=== PATIENT | male | born 1980 | race Caucasian/White ===

== ENCOUNTER 2017-06-11 22:13 | Emergency (ER) | payer OTHER ==
[~2017-06-11] VITALS: Ht 172.7 cm; Wt 83.9 kg
[~2017-06-11 22:13] MED LIST: BUPR2TAB3 SL; PROP40TA7 PO; VENL37.55 PO
--- NOTE | 2017-06-12 01:00 | NUR ---
36 Y/O MALE PLACED IN BED 10. PT C/O ABOUT DIARRHEA. MD PRESCRIBED MEDICATION. PRESENTED ACI AND DISCHARGED HOME
[2017-06-12 03:32] VITALS: BP 135/82
== END 2017-06-12 03:42 | disposition home or self-care (01) ==
LOC: ER 22:18
DX: K52.9 Noninfective gastroenteritis and colitis, unspecified (principal); Z79.899 Other long term (current) drug therapy
CPT/HCPCS: A4606; Z7502; Z7610

== ENCOUNTER 2017-06-20 03:14 | Emergency (ER) | payer OTHER ==
[~2017-06-20] VITALS: Ht 167.6 cm; Wt 74.8 kg
[2017-06-20] MEDS ORDERED: ONDANSETRON HCL/PF 4 MG/2 ML VIAL IVP ONE (04:00)
[2017-06-20] MEDS ORDERED: IV NS 0.9% 1,000 ML BAG IV ONE (04:00)
[2017-06-20] MEDS ORDERED: ONDANSETRON HCL/PF 4 MG/2 ML VIAL ONE (04:29)
[2017-06-20] MEDS ORDERED: LORAZEPAM 1 MG TABLET PO ONE (04:30)
[2017-06-20 04:33] LABS: APPEARANCE,URINE CLEAR (CLEAR); BILIRUBIN,URINE 1+ (NEGATIVE); BLOOD, URINE NEGATIVE Ery/uL (NEGATIVE); COLOR,URINE DARK YELLO (YELLOW); KETONES,URINE NEGATIVE (NEGATIVE); LEUKOCYTE ESTERASE ,URINE NEGATIVE (NEGATIVE); NITRITE, URINE NEGATIVE (NEGATIVE); PROTEIN,URINE TRACE mg/dl (NEGATIVE); UGLUCOSE NEGATIVE (NEGATIVE); UROBILINOGEN,URINE 0.2 EU/dL (0.2)
[2017-06-20 04:36] LABS: BASOPHILS # (AUTO) 0.1 /CMM (0.0-0.2); BASOPHILS % (AUTO) 1.1 % (0.0-2.0); EOSINOPHILS # (AUTO) 0.2 /CMM (0.0-0.7); HEMATOCRIT 42 % (39-51); LYMPHOCYTES # (AUTO) 2.1 /CMM (0.8-4.8); LYMPHOCYTES % (AUTO) 22.8 % (20.0-44.0); MEAN CORPUSCULAR HEMOGLOBIN 29 PG (26.0-33.0); MEAN CORPUSCULAR HGB CONC 34 g/dl (31.0-36.0); MEAN CORPUSCULAR VOLUME 85 fL (80-96); MONOCYTES # (AUTO) 0.5 /CMM (0.1-1.30); MONOCYTES % (AUTO) 5.6 % (2.0-12.0); NEUTROPHILS # (AUTO) 6.4 /CMM (1.8-8.9); NEUTROPHILS % (AUTO) 68.5 % (43.0-81.0); PLATELET COUNT (AUTO) 263 /CMM (150-450); RDW COEFFICIENT OF VARIATION 13.5 (11.5-15.0); RED BLOOD CELL COUNT(AUTO) 4.91 MIL/uL (4.5-6.0); WHITE BLOOD COUNT (AUTO) 9.3 K/uL (4.3-11.0)
[2017-06-20 04:40] LABS: BACTERIA,URINE None seen /HPF (None Seen); MUCUS,URINE Few /LPF (None Seen); RBC,URINE NONE SEEN /HPF (0-2); SQUAMOUS EPITHELIAL CELL,UR Few /HPF (None Seen); WBC,URINE 0-2 /HPF (0-3)
[2017-06-20] MEDS ORDERED: LORAZEPAM 1 MG TABLET ONE (04:43)
--- NOTE | 2017-06-20 04:45 | NUR ---
PT RECIEVED FROM HOME C/O N/V X2 WEEKS "i HAD VOMIT 20 TIMES TODAY". NO PAIN OR SOB NOTED AT THIS TIME. VSS A/0X4 NAD. WILL CONTINUE TO MONITOR FOR ANY CHANGES
--- NOTE | 2017-06-20 04:46 | NUR ---
SIGIFREDO ODONNELL AT BEDSIDE
[2017-06-20 04:54] LABS: CALCIUM, SERUM 9.4 mg/dL (8.5-10.1); CREATININE 0.9 mg/dL (0.6-1.3); POTASSIUM 3.8 mmol/L (3.5-5.1)
[2017-06-20 04:58] LABS: ALBUMIN 4.3 g/dL (3.4-5.0); BILIRUBIN,TOTAL 0.3 mg/dL (0.2-1.0); TOTAL PROTEIN, SERUM 8.3 g/dL (6.4-8.2)
[2017-06-20 05:28] VITALS: BP 130/73
== END 2017-06-20 05:29 | disposition home or self-care (01) ==
LOC: ER 03:14
DX: E86.0 Dehydration (principal); R11.2 Nausea with vomiting, unspecified; F41.9 Anxiety disorder, unspecified; Z88.5 Allergy status to narcotic agent
CPT/HCPCS: 36415; 80048-TC; 80076-TC; 81000-TC; 83690-TC; 85025-TC; A4606; J2405; J7030; Z7610

== ENCOUNTER 2017-09-08 11:40 | Emergency (ER) | payer OTHER ==
[~2017-09-08] VITALS: Ht 170.2 cm; Wt 78.9 kg
--- NOTE | 2017-09-08 11:48 | NUR ---
PT BIB RA C/O ANXIETYY AND STATES "I FEEL LIKE SHIT" S/P A 7 DAY METH ORO. PT REPORTS HE WAS GOING TO GO TO DETOX TODAY BUT WAS TOO ANXIOUS. SHAKY AND HYPERVENTILATING BUT RESPIRATIONS UNLABORED. SKIN WARM DRY. VSS. IN ER BED 15.
[2017-09-08] MEDS ORDERED: LORAZEPAM INJ 2 MG/ML VIAL IV ONE (12:00)
[2017-09-08] MEDS ORDERED: IV NS 0.9% 1,000 ML BAG IV ONE (12:00)
[2017-09-08] MEDS ORDERED: LORAZEPAM INJ 2 MG/ML VIAL ONE (12:17)
--- NOTE | 2017-09-08 13:30 | NUR ---
AT BEDSIDE. RESTING QUIETLY, NAD NOTED, ASLEEP BUT EASILY AROUSED BY TOUCH. MILTON, FACILITIES LOCATOR, WORKING ON DETOX PLACEMENT PER PT AND REQUEST. VSS.
--- NOTE | 2017-09-08 15:49 | NUR ---
MONIQUE received a call from Dr. Hodges in ED stating pt. wants to go to Detox. MONIQUE met with pt. and his and mother bedside. Pt. was asleep. 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 Pt. wants to go to treatment. Pt's drug of choice is methamphetamines and heroin. MONIQUE contacted [facility] and was informed by Lillian that they have a 10 day wait list and to call back then. MONIQUE also contacted Gini at [facility] x [phone] for a male bed at their detox facility. Gini informed SW she will call her back. SW is awaiting a call back. MONIQUE met with pt's and informed her that she is awaiting a call back from [facility] that [facility] stated that pt. needs to call and they have a 10 day waiting period as there are no beds available at this time. MONIQUE gave pt's Josefina list of referrals to drug treatment programs. MONIQUE updated pt's RN Jada regarding referrals.
--- NOTE | 2017-09-08 15:49 | NUR ---
CALL COLLEEN WHEN PATIENT IS READY TO BE DC'ED [phone]
--- NOTE | 2017-09-08 17:45 | NUR ---
PT FEELS SOMEWHAT BETTER BUT IS VERY DROWSY AT THIS TIME, NOT READY TO BE DISCHARGED. VSS.
--- NOTE | 2017-09-08 18:00 | NUR ---
CALLED [facility] SH[employer] MARKER, ETA 1 HR 30MINS
--- NOTE | 2017-09-08 18:50 | NUR ---
RESTING COMFORTABLY, ASLEEP, EASILY AROUSABLE. AWAITING PINKY FOR EVAL.
--- NOTE | 2017-09-08 19:02 | NUR ---
PINKY AT BEDSIDE
--- NOTE | 2017-09-08 19:09 | NUR ---
REPORT REC'D FROM [facility].
--- NOTE | 2017-09-08 20:09 | NUR ---
PT WAS UNABLE TO AMBULATE. PT IS STILL SEDATED. VSS.
--- NOTE | 2017-09-08 21:12 | NUR ---
PT APPEARS TO BE SLEEPING SOUNDLY WITH NO S/S OF PAIN OR DISTRESS. PT IS ON THE MONITOR AND CONTINUOUS PULSE OX. RESP EVEN AND UNLABORED. VSS. NAD NOTED.
--- NOTE | 2017-09-08 23:13 | NUR ---
PT APPEARS TO BE SLEEPING SOUNDLY WITH NO S/S OF PAIN OR DISTRESS. VSS. RESP EVEN AND UNLABORED.
--- NOTE | 2017-09-09 00:44 | NUR ---
PT IS SLEEPING SOUNDLY. NO S/S OF PAIN OR DISTRESS. RESP EVEN AND UNLABORED. VSS. PT IS ON THE MONITOR AND CONTINUOUS PULSE OX.
--- NOTE | 2017-09-09 01:35 | NUR ---
PT WAS EASILY AROUSED. PT WAS ASSISTED TO A STANDING POSITION. PT WAS ABLE TO AMBULATE WITHOUT ASSISTANCE. PT REC'D JELLO, PUDDING, APPLESAUCE, JUICE, AND CRACKERS. PT IS CALLING HIS TO PICK HIM UP AND WILL WAIT IN THE LOBBY FOR P/U. VSS. RESP EVEN AND UNLABORED.
[2017-09-09 01:37] VITALS: BP 137/81
== END 2017-09-09 01:37 | disposition home or self-care (01) ==
LOC: ER 11:43
DX: F41.0 Panic disorder [episodic paroxysmal anxiety] (principal); F15.10 Other stimulant abuse, uncomplicated; F19.10 Other psychoactive substance abuse, uncomplicated; F11.10 Opioid abuse, uncomplicated; F10.10 Alcohol abuse, uncomplicated; Z88.5 Allergy status to narcotic agent; Z98.890 Other specified postprocedural states
CPT/HCPCS: 93005; 96361; 96374; 99284; A4606; J2060; J7030; Z7610

== ENCOUNTER 2017-11-19 22:37 | Inpatient (IN) | payer OTHER ==
[~2017-11-19] VITALS: Ht 172.7 cm; Wt 81.6 kg
--- NOTE | 2017-11-19 23:00 | NUR ---
PT AMBULATORY TO ER BED 12. BIB FAMILY FROM HOME C/O EPIGASTRIC PAIN WITH NAUSEA X 5 DAYS. PT PLACED IN GOWN AND ON COIN DEALER. PT VSS/NAD NOTED/RESP EVEN UNLABORED/SKIN WARM AND DRY/AFEBRILE/AOX4. AWAITING MD DORANTES.
[2017-11-19] MEDS ORDERED: LORAZEPAM 1 MG TABLET ONE (23:37)
--- NOTE | 2017-11-19 23:40 | NUR ---
MD CARPENTER BEDSIDE FOR EVAL.
[2017-11-19 23:59] LABS: BASOPHILS # (AUTO) 0.1 /CMM (0.0-0.2); BASOPHILS % (AUTO) 0.5 % (0.0-2.0); EOSINOPHILS % (AUTO) 0.7 % (0.0-6.0); HEMATOCRIT 39 % (39-51); HEMOGLOBIN 12.8 g/dL (13.5-17.5); LYMPHOCYTES # (AUTO) 1.9 /CMM (0.8-4.8); LYMPHOCYTES % (AUTO) 19.3 % (20.0-44.0); MEAN CORPUSCULAR HGB CONC 33 g/dl (31.0-36.0); MEAN CORPUSCULAR VOLUME 88 fL (80-96); MONOCYTES # (AUTO) 0.6 /CMM (0.1-1.30); MONOCYTES % (AUTO) 5.9 % (2.0-12.0); NEUTROPHILS # (AUTO) 7.4 /CMM (1.8-8.9); NEUTROPHILS % (AUTO) 73.6 % (43.0-81.0); PLATELET COUNT (AUTO) 265 /CMM (150-450); RDW COEFFICIENT OF VARIATION 14.2 (11.5-15.0); RED BLOOD CELL COUNT(AUTO) 4.42 MIL/uL (4.5-6.0); WHITE BLOOD COUNT (AUTO) 10.1 K/uL (4.3-11.0)
[2017-11-19 23:59] LABS: OCCULT BLOOD STOOL POSITIVE (NEGATIVE)
[2017-11-20] MEDS ORDERED: LORAZEPAM 1 MG TABLET PO ONE
[2017-11-20 00:16] LABS: INR 1.02 (0.87-1.13)
[2017-11-20 00:30] LABS: ALBUMIN 4.2 g/dL (3.4-5.0); BILIRUBIN,DIRECT 0.1 mg/dL (0.0-0.2); BILIRUBIN,TOTAL 0.5 mg/dL (0.2-1.0); CALCIUM, SERUM 9.1 mg/dL (8.5-10.1); CREATININE 0.8 mg/dL (0.6-1.3); POTASSIUM 3.4 mmol/L (3.5-5.1); TOTAL PROTEIN, SERUM 7.9 g/dL (6.4-8.2)
--- NOTE | 2017-11-20 01:32 | NUR ---
PT AMBULATORY WITH A STEADY GAIT OUTSIDE TO SMOKE. OK'D BY .
--- NOTE | 2017-11-20 01:42 | NUR ---
CALL FROM [employer] ARCHITECT- [phone]. PT ACCEPTED TO [facility] BY DR ZIMMER #[phone]. BED MS 126-A. # FOR REPORT [phone]- [facility] SUP. AUTH FOR TRANSPORT [id number]
[2017-11-20] MEDS ORDERED: PANTOPRAZOLE 40 MG VIAL ONE (02:43)
[2017-11-20 03:00] VITALS: BP 138/95
[2017-11-20] MEDS ORDERED: PANTOPRAZOLE 80 MG in IV NS 0.9% 500 ML IV ONE (03:00)
[2017-11-20] MEDS ORDERED: ONDANSETRON HCL/PF 4 MG/2 ML VIAL IVP PRN (03:00)
[2017-11-20] MEDS ORDERED: LORAZEPAM INJ 2 MG/ML VIAL IV PRN (03:00)
[2017-11-20] MEDS ORDERED: ACETAMINOPHEN 650 MG/SUPP.RECT RC PRN (03:00)
[2017-11-20] MEDS ORDERED: IV NS 0.9% 1,000 ML IV PRN (03:00)
[2017-11-20] MEDS ORDERED: PANTOPRAZOLE 80 MG in IV NS 0.9% 100 ML IV ONE (03:00)
[2017-11-20] MEDS ORDERED: TEMAZEPAM 15 MG CAPSULE PO PRN (03:00)
--- NOTE | 2017-11-20 03:25 | NUR ---
PT TO RM 322.1 VIA WC WITH EMT. CAMERONS.
--- NOTE | 2017-11-20 03:30 | NUR ---
MS/RN RECEIVE PATIENT FROM E.R. VIA WHEELCHAIR. PATIENT IS AWAKE, ALERT, ORIENTED, NO C/O PAIN AT THIS TIME, NO DISTRESS NOTED. ADMISSION PER PROTOCOL WAS DONE, BUT DRUM BUILDER UNABLE TO DO VITAL SIGNS AND BELONGINGS RECONCILIATION THE PATIENT WOULD NOT STAY IN BED AND APPEAR ANXIOUS. PLAN OF CARE ABOUT THE DIAGNOSIS WAS DISCUSSED WITH THE PATIENT, AGREEABLE BEING NPO PER ORDER. WILL MONITOR.
--- NOTE | 2017-11-20 05:01 | NUR ---
MS/RN PATIENT CONTINUES TO BECOME ANXIOUS AND AGITATED AND REFUSING IV FLUIDS. PATIENT WANTS TO GO SMOKE. EXPLAINED ABOUT HOSPITAL'S POLICY REGARDING SMOKING, VERBALIZED UNDERSTANDING BUT INSISTED TO GO SMOKE. CHARGE NURSE MADE AWARE, CHARGE NURSE SPOKE TO THE PATIENT. PATIENT INSISTED TO GO SMOKE. PATIENT WAS ALLOWED TO GO DOWN TO SMOKE WITH THE AIR BATTLE MANAGER TO AVOID INCREASED AGITATION. PATIENT CAME BACK IN APPROXIMATELY 20 MINUTES. WILL CONTINUE TO MONITOR.
--- NOTE | 2017-11-20 05:30 | NUR ---
MS/RN PATIENT IS IN BED AT THIS TIME, LESS ANXIOUS, AGREED TO HAVE VITAL SIGNS TAKEN, BELONGINGS WERE RECONCILED BY THE HOG GRADER. PATIENT REQUESTED FOR ATIVAN. ATIVAN 1 MG IV WAS GIVEN ORDERED. WILL MONITOR.
--- NOTE | 2017-11-20 05:50 | NUR ---
MS/RN IV OCCLUDED, REMOVED, INSERTED NEW IV AT LEFT F/A G 22. WILL MONITOR.
--- NOTE | 2017-11-20 06:00 | NUR ---
MS/RN PATIENT IS AWAKE, ALERT, COMFORTABLE, NO DISTRESS NOTED, ALL NEEDS ATTENDED AT THIS TIME. WILL CONTINUE TO MONITOR.
--- NOTE | 2017-11-20 07:18 | NUR ---
MS/RN PATIENT C/O PAIN, OBTAINED ORDER FOR DILAUDIDI 0.5 MG IV, PATIENT IS ALLERGIC TO MORPHINE. VERIFIED WITH PATIENT ABOUT DILAUDID, PER PATIENT HE HAD DILAUDID IN THE PAST WITHOUT REACTION. PER PATIENT HE CAN HAVE DILAUDID.
--- NOTE | 2017-11-20 07:23 | NUR ---
MS RN OPENING NOTE PATIENT IS A/O X4, VERY ANXIOUS, EASILY AGITATED. PATIENT FOUND PACING IN THE ROOM WEARING HIS OWN CLOTHES. PATIENT STATED " I WANT TO GO HOME, I CANT EAT OR DRINNK, AND I HAVE TO SUFFER". CONCEPT OF NPO ORDER DISCUSSED WITH THE PATIENT. RN EDUCATED THE PATIENT ON GI BLEED, AWAITING GI CONSULT AND RISKS ASSOCIATED WITH LEAVING THE HOSPITAL AGAINST MEDICAL ADVICE. PATIENT VERBALIZED UNDERSTANDING OF THE TEACHINGS AND STATED "OK, I WILL STAY FOR NOW THEN". PATIENT REPORTED PAIN RATING 8/10 IN ABDOMEN AND HEAD. PATIENT IS REFUSING TO LAY IN THE BED AND STATES "WALKING HELPS ME RELAX". PATIENT IS AMBULATORY AND PRESENTS WITH STEADY GAIT. CALL LIGHT WITHIN REACH. EDUCATED TO USE THE CALL LIGHT. PATIENT VERBALIZED UNDERSTANDING OF ALL THE TEACHING. WILL ADMINISTER PAIN MEDICATION ONCE VERIFIED BY THE PHARMACY.
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
[2017-11-20] MEDS ORDERED: HYDROMORPHONE INJ 0.5 MG/0.5 ML SYRINGE IV PRN (07:30)
[2017-11-20] MEDS ORDERED: HYDROMORPHONE 1 MG/1 ML DISP.SYRIN IV PRN (07:30)
[2017-11-20] MEDS ORDERED: HYDROMORPHONE INJ 2 MG/ML DISP.SYRIN IV PRN (07:32)
--- NOTE | 2017-11-20 07:43 | NUR ---
ADMINISTERED DILAUDID ORDERED. WILL RE-ASSESS PAIN.
--- NOTE | 2017-11-20 07:47 | NUR ---
PATIENT APPROACHED THE NURSE IN THE HALLWAY. GAVE A FOAM CUP WITH A DRAWING OF A FACE ON IT AND SAID "THIS IS CATY, HE IS GOING TO PROTECT YOU AND LOOK AFTER YOU". NURSE THANKED THE PATIENT.
[2017-11-20 08:00] VITALS: BP 128/86
--- NOTE | 2017-11-20 08:21 | NUR ---
PATIENT STATED HE TALKED TO HIS AND SHE NEEDS HIM TO GO HOME AND GIVE THE HOUSE ROYAL TO HER. STATED HE WILL AMA, AND RETURN AND READMIT HIMSELF. RISKS ASSOCIATED WITH LEAVING AMA DISCUSSED WITH THE PATIENT. PATIENT STATED "I HAVE TO GO". CHARGE NURSE DURAN NOTIFIED. PATIENT'S BELONGINGS WERE RETURNED. PATIENT SIGNED THE AMA FORM, BUT LEFT THE BELONGINGS LIST UNSIGNED. RN SIGNED IT WITH CHARGE NURSE GARZON. PATIENT DID NOT WANT TO TAKE ANY MEDICAL RECORDS.
--- NOTE | 2017-11-20 08:23 | NUR ---
RN WENT TO THE PATIENT'S ROOM TO REMOVE THE IV. RN SAW THE PATIENT HOLDING A CUP UNDER HIS ARM, AND BLOOD DRIPPING FROM THE REMOVED CATHETER SITE TO THE CUP. IV CATHETER ON THE FLOOR BY THE PATIENT'S FEET. PATIENT STATED "ITS OK, I AM A TUFF MATTIE, I CAN REMOVE MY OWN IV. I AM A SOLDIER". RNS GUNNER AND TEMO CLEANSED PATIENT'S ARM WITH ALCOHOL SWAB AND COVERED WITH A GAUZE. PRESSURE APPLIED TO THE BLEEDING ARM. OCLUSIVE DRESSING APPLIED. BLEEDING STOPPED. FLOORS AND CLEANSED WITH CLOROX WIPES. BIOHAZARD MATERIALS DISPOSED ACCORDING TO THE POLICY.
--- NOTE | 2017-11-20 08:38 | NUR ---
PATIENT LEFT THE HOSPITAL PREMISES.
[2017-11-20] MEDS ORDERED: PANTOPRAZOLE 40 MG VIAL IV SCH (09:00)
--- NOTE | 2017-11-20 09:11 | NUR ---
PATIENT'S MOTHER ON THE PHONE. STATED SHE WANTED TO SEE HOW IS HE DOING. PATIENT'S MOTHER STATED " I KNOW HE LEFT, BUT I WANTED TO ASK IF HE WANTS TO COME BACK, CAME HE COME AND BE RE-ADMITTED AGAIN? RN ANSWERED THE PATIENT SHOULD GO TO THE NEAREST EMERGENCY ROOM AND THAT [facility] ER IS OPEN TO THE COMMUNITY.
--- NOTE | 2017-11-20 09:17 | NUR ---
SECURITY CALLED FROM [facility]IRS STATING PATIENT IS DOWNSTAIRS AND WANTS TO COME UP. RN TOLD THE PATIENT THAT HE MUST GO THROUGH THE EMERGENCY DEPARTMENT. PATIENT VERBALIZED UNDERSTANDING.
== END 2017-11-20 08:30 | disposition left against medical advice (07) | DRG 241 ==
LOC: ER 22:43 → MED 11-20 02:45
PROVIDERS: ADMIT Nurse Practitioner Acute Care; ATTEND Nurse Practitioner Acute Care
DX: K27.9 Peptic ulcer, site unspecified, unspecified as acute or chronic, without hemorrhage or perforation (principal); F41.9 Anxiety disorder, unspecified; Z91.14 Patient's other noncompliance with medication regimen; Z88.5 Allergy status to narcotic agent; Z98.890 Other specified postprocedural states; Z76.5 Malingerer [conscious simulation]
CPT/HCPCS: 36415; 80048-TC; 80076-TC; 82272-TC; 83690-TC; 85025-TC; 85730-TC; 87081-TC; A4606; A6402; C9113; J1170; J2060; J7030; Z7610

== ENCOUNTER 2017-11-20 09:47 | Emergency (ER) | payer OTHER ==
[~2017-11-20] VITALS: Ht 172.7 cm; Wt 81.6 kg
--- NOTE | 2017-11-20 09:50 | NUR ---
RECIEVED PATIENT TO ED BED 16. A/OX4, PT IS C/O BLOOD IN THE STOOL, AND ABD PAIN. PT WAS ADMITTED LAST NIGHT BUT AMA'D THIS AM. PT WANTS TO BE ADMITTED AGAIN. APPEARS ANXIOUS. NAD ALL NEEDS ARE ATTENDED, PENDING ER MD DORANTES
--- NOTE | 2017-11-20 11:00 | NUR ---
BLOOD IN STOOL. AMA'ed FROM HOSPITAL TODAY IN AM. NAD NOTED, VSS, RESP EVEN AND UNLABORED, PT WAS PUT ON MONITOR, PT WAS SEEN BY .
--- NOTE | 2017-11-20 12:30 | NUR ---
Patient eloped from facility. ER MD notified.
[2017-11-20 13:16] VITALS: BP 128/75
== END 2017-11-20 13:17 | disposition left against medical advice (07) ==
LOC: ER 09:48
DX: K92.2 Gastrointestinal hemorrhage, unspecified (principal); F41.9 Anxiety disorder, unspecified; Z88.6 Allergy status to analgesic agent; Z98.890 Other specified postprocedural states
CPT/HCPCS: A4606; Z7502; Z7610

== ENCOUNTER 2018-01-02 05:53 | Emergency (ER) | payer OTHER ==
[~2018-01-02] VITALS: Ht 172.7 cm; Wt 82.6 kg
--- NOTE | 2018-01-02 05:53 | NUR ---
PT BB SELF BROUGHT IN BY WHEELCHAIR BECAUSE "I CANT DO IT MAN" WHEN TRYING TO WALK. PT IS C/O WEAKNESS BUT IS NOTED VERY ANXIOUS WITH TACHYCARDIA BUT OTHERWISE VSS. NO ACUTE DISTRESS AT THIS TIME. PT IS SLURRING WORDS BUT ALERT AND ORIENTED X4. WILL CONTINUE TO MONITOR FOR ANY CHANGES DURING THE SHIFT.
--- NOTE | 2018-01-02 05:54 | NUR ---
ER MD MCKAY AT BEDSIDE
[2018-01-02] MEDS ORDERED: LORAZEPAM 1 MG TABLET ONE (06:13)
[2018-01-02] MEDS ORDERED: LORAZEPAM 1 MG TABLET PO ONE (06:30)
--- NOTE | 2018-01-02 06:36 | NUR ---
PATIENT HAS BEEN D/C'D. PATIENT WAS ASKING MD MCKAY "KNOCK ME OUT PLEASE" IN WHICH MD MCKAY STATED HE WOULD NOT DO THAT. PATIENT HAS WALKED OUT WITH A STEADY GAIT AND "ILL GET AN UBER HOME"
[2018-01-02 06:38] VITALS: BP 131/77
== END 2018-01-02 06:38 | disposition home or self-care (01) ==
LOC: ER 05:54
DX: F30.9 Manic episode, unspecified (principal); F43.10 Post-traumatic stress disorder, unspecified; Z98.890 Other specified postprocedural states; Z88.6 Allergy status to analgesic agent; Z87.11 Personal history of peptic ulcer disease
CPT/HCPCS: 99284; A4606; Z7610

== ENCOUNTER 2018-06-17 17:59 | Emergency (ER) | payer OTHER ==
[~2018-06-17] VITALS: Ht 172.7 cm; Wt 86.2 kg
[2018-06-17] MEDS ORDERED: NALOXONE PREFILLED SYRINGE 2 MG/2 ML SYRINGE ONE (18:08)
[2018-06-17] MEDS ORDERED: NALOXONE HCL 0.4 MG/ML AMPUL ONE (18:11)
[2018-06-17 18:14] LABS: BASOPHILS # (AUTO) 0.1 /CMM (0.0-0.2); BASOPHILS % (AUTO) 1.1 % (0.0-2.0); EOSINOPHILS % (AUTO) 1.1 % (0.0-6.0); HEMATOCRIT 36 % (39-51); HEMOGLOBIN 11.8 g/dL (13.5-17.5); LYMPHOCYTES # (AUTO) 1.8 /CMM (0.8-4.8); LYMPHOCYTES % (AUTO) 16.1 % (20.0-44.0); MEAN CORPUSCULAR HGB CONC 33 g/dl (31.0-36.0); MEAN CORPUSCULAR VOLUME 89 fL (80-96); MONOCYTES # (AUTO) 1.2 /CMM (0.1-1.30); MONOCYTES % (AUTO) 11.3 % (2.0-12.0); NEUTROPHILS # (AUTO) 7.7 /CMM (1.8-8.9); NEUTROPHILS % (AUTO) 70.4 % (43.0-81.0); PLATELET COUNT (AUTO) 239 /CMM (150-450); RED BLOOD CELL COUNT(AUTO) 3.98 MIL/uL (4.5-6.0); WHITE BLOOD COUNT (AUTO) 10.9 K/uL (4.3-11.0)
[2018-06-17 18:23] LABS: CALCIUM, SERUM 8.3 mg/dL (8.5-10.1); CARBON DIOXIDE 21 mmol/L (21-32); CHLORIDE 107 mmol/L (98-107); CREATININE 0.9 mg/dL (0.6-1.3); GLUCOSE 116 mg/dL (74-106); POTASSIUM 3.6 mmol/L (3.5-5.1); SODIUM SERUM 141 mmol/L (136-145); UREA NITROGEN, BLOOD 27 mg/dL (7-18)
[2018-06-17 18:29] LABS: ALANINE AMINOTRANSFERASE 32 U/L (12-78); ALBUMIN 3.5 g/dL (3.4-5.0); ALCOHOL, BLOOD < 3 mg/dL (0-0); ALKALINE PHOSPHATASE 87 U/L (46-116); ASPARTATE AMINOTRANSFERASE 35 U/L (15-37); BILIRUBIN,DIRECT 0.2 mg/dL (0.0-0.2); BILIRUBIN,TOTAL 0.9 mg/dL (0.2-1.0); TOTAL PROTEIN, SERUM 6.9 g/dL (6.4-8.2)
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
[2018-06-17 18:30] LABS: ACETAMINOPHEN 0 ug/ml (10-30)
[2018-06-17] MEDS ORDERED: NALOXONE HCL 0.4 MG/ML AMPUL IV ONE (18:30)
[2018-06-17 18:34] LABS: APPEARANCE,URINE Clear (CLEAR); BILIRUBIN,URINE SMALL (NEGATIVE); BLOOD, URINE Negative Ery/uL (NEGATIVE); COLOR,URINE Yellow (YELLOW); KETONES,URINE 15 (NEGATIVE); LEUKOCYTE ESTERASE ,URINE Negative (NEGATIVE); NITRITE, URINE Negative (NEGATIVE); PROTEIN,URINE 30 mg/dl (NEGATIVE); UGLUCOSE Negative (NEGATIVE)
[2018-06-17 18:39] LABS: BACTERIA,URINE None seen /HPF (None Seen); RBC,URINE 0-2 /HPF (0-2); SQUAMOUS EPITHELIAL CELL,UR Rare /HPF (None Seen); WBC,URINE 0-2 /HPF (0-3)
--- NOTE | 2018-06-17 19:25 | NUR ---
REC'D ENDORSEMENT FROM [facility]
--- NOTE | 2018-06-17 19:37 | NUR ---
PT STILL UNRESPONSIVE. VSS. WILL CONT TO MONITOR CLOSELY
--- NOTE | 2018-06-17 20:00 | NUR ---
UPDATED , JOVANNY, ON PT CONDITION. REQUESTS THAT WE CONTACT HER WHEN HE IS ALERT. PHONE NUMBER IN PT DATA.
--- NOTE | 2018-06-17 20:42 | NUR ---
PT ALERT, NOT TALKING/ANSWERING ANY QUESTIONS
[2018-06-17] MEDS ORDERED: IV NS 0.9% 1,000 ML BAG IV ONE (21:00)
--- NOTE | 2018-06-17 21:09 | NUR ---
PT REFUSING FURTHER TREATMENT. HE IS AOX4 AND VSS. GM VIDEO AWARE. Addendum: 06/17/18 at 2124 by [email or web address] PT PULLED OUT IV AND REMOVED ALL MONITORING DEVICES.
--- NOTE | 2018-06-17 21:17 | NUR ---
Patient discharged to home in stable condition. Written and verbal after care instructions given. Patient verbalizes understanding of instruction.
[2018-06-17 21:25] VITALS: BP 117/71
== END 2018-06-17 21:25 | disposition home or self-care (01) ==
LOC: ER 18:03
DX: F15.10 Other stimulant abuse, uncomplicated (principal); R45.6 Violent behavior; F41.9 Anxiety disorder, unspecified; F43.10 Post-traumatic stress disorder, unspecified; F17.200 Nicotine dependence, unspecified, uncomplicated; Z98.890 Other specified postprocedural states; Z88.6 Allergy status to analgesic agent
CPT/HCPCS: 36415; 80048; 80076; 80305; 80329; 81001; 85025; 96374; 99283; A4606; G0480 ×2; J2310; Z7610; 81000-TC

== ENCOUNTER 2018-07-08 11:45 | Emergency (ER) | payer OTHER ==
[~2018-07-08] VITALS: Ht 165.1 cm; Wt 68.0 kg
[2018-07-08 11:52] VITALS: BP 134/74
== END 2018-07-08 13:46 | disposition home or self-care (01) ==
LOC: ER 11:48
DX: R51 Headache (principal); F41.9 Anxiety disorder, unspecified; F43.10 Post-traumatic stress disorder, unspecified; F10.10 Alcohol abuse, uncomplicated; F17.200 Nicotine dependence, unspecified, uncomplicated; Y90.9 Presence of alcohol in blood, level not specified; Z98.890 Other specified postprocedural states; Z88.5 Allergy status to narcotic agent
CPT/HCPCS: 70486; 99284; A4606; Z7610

== ENCOUNTER 2018-07-09 09:13 | Emergency (ER) | payer OTHER ==
[~2018-07-09] VITALS: Ht 165.1 cm; Wt 74.8 kg
--- NOTE | 2018-07-09 09:17 | NUR ---
Pt called to triage, pt not in the waiting room
--- NOTE | 2018-07-09 09:28 | NUR ---
Pt called to triage, pt not in waiting room
--- NOTE | 2018-07-09 09:40 | NUR ---
AAOX3, CAME TO ER C/O SKIN RASH TO FACE, UPPER EXTREMITIES AND TORSO AREA FOR POSSIBLE ALLERGIC REACTION TO AUGMENTIN OR EXPOSURE TO MARIJUANA. SPEAKS IN FULL SENTENCES. RR IS EVEN AND UNLABORED WITH NAD NOTED. AWAITING MD FOR EVAL.
--- NOTE | 2018-07-09 09:58 | NUR ---
DR CHOWDHURY AT BS FOR EVAL.
[2018-07-09] MEDS ORDERED: diphenhydrAMINE HCL 50 MG/ML VIAL ONE (10:23)
[2018-07-09] MEDS ORDERED: FAMOTIDINE (20 MG) 20 MG TABLET ONE (10:24)
[2018-07-09] MEDS ORDERED: LORAZEPAM 0.5 MG TABLET ONE (10:24)
[2018-07-09] MEDS ORDERED: methylPREDNISolone SOD SUCC 125 MG/2ML VIAL ONE (10:24)
[2018-07-09] MEDS ORDERED: IV NS 0.9% 1,000 ML BAG IV ONE (10:30)
[2018-07-09] MEDS ORDERED: FAMOTIDINE (20 MG) 20 MG TABLET PO ONE (10:30)
[2018-07-09] MEDS ORDERED: methylPREDNISolone SOD SUCC 125 MG/2ML VIAL IV ONE (10:30)
[2018-07-09] MEDS ORDERED: diphenhydrAMINE HCL 50 MG/ML VIAL IV ONE (10:30)
[2018-07-09] MEDS ORDERED: LORAZEPAM 0.5 MG TABLET PO ONE (10:30)
--- NOTE | 2018-07-09 11:00 | NUR ---
IV removed. Catheter intact and site benign. Pressure and 4x4 applied to site. No bleeding noted.Patient discharged to home in stable condition. Written and verbal after care instructions given. Patient verbalizes understanding of instruction. Addendum: 07/09/18 at 1102 by GISELE Amendment undone in EDM - 07/09/18 at 1103 by GISELE PATIENT WAS TOLD NOT TO RECEPTION CENTRE MANAGER. Addendum: 07/09/18 at 1103 by GISELE PATIENT WAS TOLD NOT TO DRIVE.
[2018-07-09 11:01] VITALS: BP 138/84
== END 2018-07-09 11:04 | disposition home or self-care (01) ==
LOC: ER 09:14
DX: F41.9 Anxiety disorder, unspecified (principal); T36.0X5A Adverse effect of penicillins, initial encounter; F13.20 Sedative, hypnotic or anxiolytic dependence, uncomplicated; J02.9 Acute pharyngitis, unspecified; F43.10 Post-traumatic stress disorder, unspecified; F17.200 Nicotine dependence, unspecified, uncomplicated; Z98.890 Other specified postprocedural states; Z88.6 Allergy status to analgesic agent; Y92.89 Other specified places as the place of occurrence of the external cause
CPT/HCPCS: J1200; J2930; J7030

== ENCOUNTER 2018-08-02 03:29 | Emergency (ER) | payer OTHER ==
[~2018-08-02] VITALS: Ht 170.2 cm; Wt 84.8 kg
--- NOTE | 2018-08-02 03:35 | NUR ---
PT BIBSELF FROM HOME C/C CP X 2 DAYS. -N/V. -BLANCA. -DIZZINESS. PT STATES FEELING ANXIOUS. LEFT FOREARM REDNESS NOTED. PT ON MONITOR IN BED 11. WILL CONTINUE TO MONITOR.
[2018-08-02] MEDS ORDERED: LORAZEPAM INJ 2 MG/ML VIAL ONE (03:48)
[2018-08-02 04:00] VITALS: BP 111/82
[2018-08-02] MEDS: LORAZEPAM INJ 2 MG/ML VIAL IM ONE (04:00)
--- NOTE | 2018-08-02 04:37 | NUR ---
Patient discharged to home in stable condition. Written and verbal after care instructions given. Patient verbalizes understanding of instruction. PT AMBULATORY WITH STEADY GAIT.
== END 2018-08-02 04:38 | disposition home or self-care (01) ==
LOC: ER 03:30
DX: F41.9 Anxiety disorder, unspecified (principal); L03.114 Cellulitis of left upper limb; F43.10 Post-traumatic stress disorder, unspecified; F17.200 Nicotine dependence, unspecified, uncomplicated; Z98.890 Other specified postprocedural states; Z88.6 Allergy status to analgesic agent
CPT/HCPCS: 93005; 96372; 99283; A4606; J2060

== ENCOUNTER 2018-08-21 22:40 | Emergency (ER) | payer OTHER ==
[~2018-08-21] VITALS: Ht 172.7 cm; Wt 84.4 kg
[2018-08-21 22:42] VITALS: BP 160/88
[2018-08-21] MEDS ORDERED: LORAZEPAM 1 MG TABLET ONE (23:12)
[2018-08-21] MEDS ORDERED: LORAZEPAM 1 MG TABLET PO ONE (23:30)
== END 2018-08-21 23:54 | disposition home or self-care (01) ==
LOC: ER 22:42
DX: F15.10 Other stimulant abuse, uncomplicated (principal); F41.9 Anxiety disorder, unspecified; F43.10 Post-traumatic stress disorder, unspecified; F17.200 Nicotine dependence, unspecified, uncomplicated; Z98.890 Other specified postprocedural states; Z88.6 Allergy status to analgesic agent
CPT/HCPCS: 99283; A4606

== ENCOUNTER 2019-03-29 19:40 | Emergency (ER) | payer OTHER ==
[~2019-03-29] VITALS: Ht 172.7 cm; Wt 93.0 kg
[2019-03-29 19:56] VITALS: BP 148/99
[2019-03-29] MEDS ORDERED: LORAZEPAM 1 MG TABLET ONE (20:23)
[2019-03-29] MEDS ORDERED: LORAZEPAM 1 MG TABLET PO ONE (20:30)
== END 2019-03-29 20:27 | disposition home or self-care (01) ==
LOC: ER 19:40
DX: F41.9 Anxiety disorder, unspecified (principal); F43.10 Post-traumatic stress disorder, unspecified; F17.200 Nicotine dependence, unspecified, uncomplicated; Z98.890 Other specified postprocedural states; Z88.6 Allergy status to analgesic agent

== ENCOUNTER 2019-07-24 07:08 | Emergency (ER) | payer OTHER ==
[~2019-07-24] VITALS: Ht 172.7 cm; Wt 81.6 kg
--- NOTE | 2019-07-24 07:16 | NUR ---
patient camein to the ER c/o r arm pain and swelling s/p shot an opiods 2-3 days ago, 03/15 ps. On room air, breathing evenly and unlabored. kept comfortable, will continue to monitor accordingly.
[2019-07-24] MEDS ORDERED: ACETAMINOPHEN ES 500 MG TABLET ONE (07:33)
[2019-07-24] MEDS: ACETAMINOPHEN ES 500 MG TABLET PO ONE (07:46)
[2019-07-24 07:47] VITALS: BP 125/74
--- NOTE | 2019-07-24 07:47 | NUR ---
Patient discharged to home in stable condition. Written and verbal after care instructions given. Patient verbalizes understanding of instruction.
== END 2019-07-24 07:47 | disposition home or self-care (01) ==
LOC: ER 07:08
DX: L03.113 Cellulitis of right upper limb (principal); F19.10 Other psychoactive substance abuse, uncomplicated; F10.10 Alcohol abuse, uncomplicated; F17.200 Nicotine dependence, unspecified, uncomplicated; Y90.9 Presence of alcohol in blood, level not specified; Z88.5 Allergy status to narcotic agent

== ENCOUNTER 2019-08-18 10:05 | Emergency (ER) | payer OTHER ==
[~2019-08-18] VITALS: Ht 172.7 cm; Wt 83.9 kg
[2019-08-18] MEDS ORDERED: ONDANSETRON HCL/PF 4 MG/2 ML VIAL ONE (10:32)
[2019-08-18] MEDS ORDERED: LORAZEPAM INJ 2 MG/ML VIAL ONE (10:34)
--- NOTE | 2019-08-18 10:40 | NUR ---
pt bib self c/o abdominal pain and diarrhea since last night. denies blood in stool. pt feels he is still shaky from detoxing. refuses opiates. resp even unlabored. skin warm dry. NAD noted. in er bed 04.
[2019-08-18 10:50] LABS: BASOPHILS % (AUTO) 0.5 % (0.0-2.0); EOSINOPHILS % (AUTO) 0.5 % (0.0-6.0); HEMATOCRIT 40 % (39-51); HEMOGLOBIN 13.2 g/dL (13.5-17.5); LYMPHOCYTES # (AUTO) 1.4 /CMM (0.8-4.8); LYMPHOCYTES % (AUTO) 15.2 % (20.0-44.0); MEAN CORPUSCULAR HGB CONC 33 g/dl (31.0-36.0); MEAN CORPUSCULAR VOLUME 87 fL (80-96); MONOCYTES # (AUTO) 0.7 /CMM (0.1-1.30); MONOCYTES % (AUTO) 7.4 % (2.0-12.0); NEUTROPHILS # (AUTO) 6.9 /CMM (1.8-8.9); NEUTROPHILS % (AUTO) 76.4 % (43.0-81.0); PLATELET COUNT (AUTO) 315 /CMM (150-450); RED BLOOD CELL COUNT(AUTO) 4.56 MIL/uL (4.5-6.0); WHITE BLOOD COUNT (AUTO) 9.1 K/uL (4.3-11.0)
[2019-08-18] MEDS: IV NS 0.9% 1,000 ML BAG IV ONE (11:05)
[2019-08-18] MEDS: ONDANSETRON HCL/PF 4 MG/2 ML VIAL IVP ONE (11:05)
[2019-08-18] MEDS: LORAZEPAM INJ 2 MG/ML VIAL IV ONE (11:05)
--- NOTE | 2019-08-18 11:06 | NUR ---
PT VERY HARD STICK, UNABLE TO OBTAIN IV BUT ABLE TO DRAW BLOOD. MINGO RN OBTAINED IV WITH BRISK BLOOD RETURN.
[2019-08-18 11:08] LABS: BILIRUBIN,TOTAL 0.8 mg/dL (0.2-1.0); CREATININE 0.8 mg/dL (0.6-1.3); POTASSIUM 4.1 mmol/L (3.5-5.1)
[2019-08-18 11:09] LABS: ALBUMIN 4.1 g/dL (3.4-5.0); BILIRUBIN,DIRECT 0.1 mg/dL (0.0-0.2); TOTAL PROTEIN, SERUM 7.8 g/dL (6.4-8.2)
--- NOTE | 2019-08-18 11:50 | NUR ---
Patient discharged to home in stable condition. Written and verbal after care instructions given. Patient verbalizes understanding of instruction. IV removed. Catheter intact and site benign. Pressure and 4x4 applied to site. No bleeding noted. Instructed not to drive. NAD noted. Ambulatory steady gait.
[2019-08-18 11:53] VITALS: BP 119/87
== END 2019-08-18 11:53 | disposition home or self-care (01) ==
LOC: ER 10:08
DX: R10.9 Unspecified abdominal pain (principal); R19.7 Diarrhea, unspecified; F41.9 Anxiety disorder, unspecified; F43.10 Post-traumatic stress disorder, unspecified; F17.200 Nicotine dependence, unspecified, uncomplicated; Z88.6 Allergy status to analgesic agent; Z98.890 Other specified postprocedural states
CPT/HCPCS: 36415; 80048; 80076; 83690; 85025; 96361; 96374; 96375; 99284; J2060; J2405; J7030

== ENCOUNTER 2019-08-19 10:07 | Emergency (ER) | payer OTHER ==
[~2019-08-19] VITALS: Ht 172.7 cm; Wt 81.6 kg
[2019-08-19 11:00] VITALS: BP 166/95
[2019-08-19] MEDS ORDERED: LORAZEPAM INJ 2 MG/ML VIAL ONE (11:10)
[2019-08-19] MEDS ORDERED: LORAZEPAM INJ 2 MG/ML VIAL IM ONE (11:30)
== END 2019-08-19 11:20 | disposition home or self-care (01) ==
LOC: ER 10:09
DX: F41.9 Anxiety disorder, unspecified (principal); F43.10 Post-traumatic stress disorder, unspecified; F17.200 Nicotine dependence, unspecified, uncomplicated; Z98.890 Other specified postprocedural states; Z88.6 Allergy status to analgesic agent
CPT/HCPCS: 96372; 99283; J2060

== ENCOUNTER 2020-03-14 22:13 | Emergency (ER) | payer OTHER ==
[~2020-03-14] VITALS: Ht 172.7 cm; Wt 90.7 kg
[2020-03-14 22:30] VITALS: BP 137/76
[2020-03-14] MEDS ORDERED: KETOROLAC TROMETHAMINE INJ 60 MG/2 ML VIAL IM ONE ×2 (23:30→23:32)
[2020-03-14] MEDS ORDERED: LORAZEPAM INJ 2 MG/ML VIAL IM ONE (23:30)
[2020-03-14] MEDS ORDERED: LORAZEPAM INJ 2 MG/ML VIAL ONE (23:33)
[2020-03-14] MEDS ORDERED: ONDANSETRON 4 MG TAB.RAPDIS ONE (23:50)
[2020-03-15] MEDS ORDERED: ONDANSETRON 4 MG TAB.RAPDIS SL ONE
--- NOTE | 2020-03-15 00:05 | NUR ---
Patient discharged to home in stable condition. Written and verbal after care instructions given. Patient verbalizes understanding of instruction.pt. ambulatory with a steady gait
== END 2020-03-15 00:05 | disposition home or self-care (01) ==
LOC: ER 22:24
DX: M54.42 Lumbago with sciatica, left side (principal); F41.9 Anxiety disorder, unspecified; Z98.890 Other specified postprocedural states; Z88.5 Allergy status to narcotic agent
CPT/HCPCS: 96372 ×2; 99284; J1885; J2060; Q0162

== ENCOUNTER 2020-03-15 06:36 | Emergency (ER) | payer OTHER ==
[~2020-03-15] VITALS: Ht 172.7 cm; Wt 82.6 kg
--- NOTE | 2020-03-15 06:45 | NUR ---
EKG AT BEDSIDE
--- NOTE | 2020-03-15 06:50 | NUR ---
DR RUDD AT [facility]
[2020-03-15] MEDS ORDERED: LORAZEPAM INJ 2 MG/ML VIAL ONE (07:00)
[2020-03-15] MEDS ORDERED: ONDANSETRON HCL/PF 4 MG/2 ML VIAL ONE (07:03)
[2020-03-15] MEDS: LORAZEPAM INJ 2 MG/ML VIAL IM ONE (07:13)
[2020-03-15] MEDS: ONDANSETRON HCL/PF 4 MG/2 ML VIAL IM ONE (07:13)
[2020-03-15 07:21] VITALS: BP 124/98
== END 2020-03-15 07:22 | disposition home or self-care (01) ==
LOC: ER 06:38
DX: F41.9 Anxiety disorder, unspecified (principal); F13.20 Sedative, hypnotic or anxiolytic dependence, uncomplicated; F43.10 Post-traumatic stress disorder, unspecified; F17.200 Nicotine dependence, unspecified, uncomplicated; Z98.890 Other specified postprocedural states; Z88.6 Allergy status to analgesic agent
CPT/HCPCS: 96372 ×2; 99284; J2060; J2405

== ENCOUNTER 2020-03-17 03:56 | Emergency (ER) | payer OTHER ==
[~2020-03-17] VITALS: Ht 170.2 cm; Wt 82.6 kg
[2020-03-17 04:06] VITALS: BP 127/78
[2020-03-17] MEDS ORDERED: LORAZEPAM 1 MG TABLET ONE (04:52)
[2020-03-17] MEDS ORDERED: KETOROLAC TROMETHAMINE INJ 60 MG/2 ML VIAL IM ONE ×2 (04:52→05:00)
--- NOTE | 2020-03-17 04:54 | NUR ---
PATIENT CAME TO ER BED 10 C/O LOWER BACK PAIN AND ANXIETY. PATIENT STATES THAT HE WOULD LIKE A REFILL OF ATIVAN BECAUSE HIS PRIMARY WON'T BE SEEN UNTIL TUESDAY. PATIENT STATES HE WOULD ALSO LIKE ATIVAN TO CARRY HIM OVER UNTIL TUESDAY. PATIENT IS AAOX4. NO SOB. BREATHING EVENLY AND UNLABORED ON ROOM AIR. CONNECTED TO MONITOR.
[2020-03-17] MEDS ORDERED: LORAZEPAM 1 MG TABLET PO ONE (05:00)
--- NOTE | 2020-03-17 05:45 | NUR ---
MD NOTIFIED OF PATIENT'S REQUEST OF WANTING MORE ATIVAN. MD IS NOTIFIED.
--- NOTE | 2020-03-17 05:48 | NUR ---
PATIENT STATES, "I AM NOT TRYING TO GET DOPE HERE IN THE EMERGENCY. DUDE, I AM A GANGSTER, I CAN GET THIS MEDICATION EASILY."
--- NOTE | 2020-03-17 06:07 | NUR ---
PATIENT REFUSED TO SIGN DISCHARGE PAPERWORK. PATIENT STATES, "I'M NOT GONNA SIGN THAT, FUCK THAT."
--- NOTE | 2020-03-17 06:18 | NUR ---
PATIENT STATES THAT HE WASN'T GIVEN DISCHARGE PAPERWORK, BUT PULLS OUT DISCHARGE PAPERWORK FROM HIS LEFT PANTS POCKET.
== END 2020-03-17 05:05 | disposition home or self-care (01) ==
LOC: ER 03:58
DX: M54.40 Lumbago with sciatica, unspecified side (principal); F41.9 Anxiety disorder, unspecified; F43.10 Post-traumatic stress disorder, unspecified; F17.200 Nicotine dependence, unspecified, uncomplicated; Z98.890 Other specified postprocedural states; Z88.6 Allergy status to analgesic agent
CPT/HCPCS: 96372; 99283; J1885

== ENCOUNTER 2021-11-14 08:27 | Emergency (ER) | payer OTHER ==
[~2021-11-14] VITALS: Ht 172.7 cm; Wt 97.5 kg
--- NOTE | 2021-11-14 08:47 | NUR ---
The patient bibs for c/o migraine headache 01/13 since 11/03/21, took ibuprofen 800 mg 30 mins PLANNING AIDE. The patient is alert and oriented x4. In room air and denies SOB. Respiration regular and unlabored. Will continue to monitor the patient.
[2021-11-14] MEDS ORDERED: LORAZEPAM INJ 2 MG/ML VIAL ONE (08:54)
[2021-11-14] MEDS ORDERED: PROCHLORPERAZINE EDISYLATE 10 MG/2 ML VIAL ONE (08:54)
[2021-11-14] MEDS ORDERED: KETOROLAC TROMETHAMINE 15 MG/ML VIAL ONE (08:54)
--- NOTE | 2021-11-14 08:57 | NUR ---
WATER REUSE PROGRAM MANAGER AT THE BEDSIDE
--- NOTE | 2021-11-14 08:59 | NUR ---
SALINE LOCK ESTABLISHED, BLOOD DRAWN AND SENT TO LAB
[2021-11-14] MEDS ORDERED: IV NS 0.9% 1,000 ML BAG IV ONE (09:00)
[2021-11-14] MEDS ORDERED: KETOROLAC TROMETHAMINE INJ 30 MG/ML VIAL IV ONE (09:00)
[2021-11-14] MEDS ORDERED: LORAZEPAM INJ 2 MG/ML VIAL IV ONE (09:00)
[2021-11-14] MEDS ORDERED: PROCHLORPERAZINE EDISYLATE 10 MG/2 ML VIAL IVP ONE (09:00)
[2021-11-14 09:15] LABS: BASOPHILS # (AUTO) 0.1 K/uL (0.0-0.2); BASOPHILS % (AUTO) 0.6 % (0.0-2.0); EOSINOPHILS % (AUTO) 0.5 % (0.0-6.0); HEMATOCRIT 44 % (39-51); HEMOGLOBIN 14.6 g/dL (13.5-17.5); LYMPHOCYTES # (AUTO) 2.1 K/uL (0.8-4.8); LYMPHOCYTES % (AUTO) 22.1 % (20.0-44.0); MEAN CORPUSCULAR HGB CONC 33 g/dl (31.0-36.0); MEAN CORPUSCULAR VOLUME 89 fL (80-96); MONOCYTES # (AUTO) 0.8 K/uL (0.1-1.30); MONOCYTES % (AUTO) 8.9 % (2.0-12.0); NEUTROPHILS # (AUTO) 6.5 K/uL (1.8-8.9); NEUTROPHILS % (AUTO) 67.9 % (43.0-81.0); PLATELET COUNT (AUTO) 246 K/uL (150-450); RED BLOOD CELL COUNT(AUTO) 4.97 MIL/uL (4.5-6.0); WHITE BLOOD COUNT (AUTO) 9.5 K/uL (4.3-11.0)
[2021-11-14 09:32] LABS: CALCIUM, SERUM 9.3 mg/dL (8.5-10.1); CARBON DIOXIDE 29 mmol/L (21-32); CHLORIDE 101 mmol/L (98-107); CREATININE 1.4 mg/dL (0.6-1.3); GLUCOSE 102 mg/dL (74-106); POTASSIUM 3.9 mmol/L (3.5-5.1); SODIUM SERUM 141 mmol/L (136-145); UREA NITROGEN, BLOOD 24 mg/dL (7-18)
[2021-11-14 09:38] LABS: ALANINE AMINOTRANSFERASE 41 U/L (12-78); ALBUMIN 4.7 g/dL (3.4-5.0); ALKALINE PHOSPHATASE 94 U/L (46-116); ASPARTATE AMINOTRANSFERASE 16 U/L (15-37); BILIRUBIN,DIRECT 0.1 mg/dL (0.0-0.2); BILIRUBIN,TOTAL 0.7 mg/dL (0.2-1.0); TOTAL PROTEIN, SERUM 8.8 g/dL (6.4-8.2)
--- NOTE | 2021-11-14 10:40 | NUR ---
IV removed. Catheter intact and site benign. Pressure and 4x4 applied to site. No bleeding noted.Patient discharged to home in stable condition. Written and verbal after care instructions given. Patient verbalizes understanding of instruction.
[2021-11-14 10:41] VITALS: BP 129/84
== END 2021-11-14 10:41 | disposition home or self-care (01) ==
LOC: ER 08:32
DX: R51.9 Headache, unspecified (principal); F41.9 Anxiety disorder, unspecified; F17.200 Nicotine dependence, unspecified, uncomplicated; Z87.19 Personal history of other diseases of the digestive system; Z88.8 Allergy status to other drugs, medicaments and biological substances
CPT/HCPCS: 36415; 70450; 71045; 80048; 80076; 84484; 85025; 93005; 96361; 96374; 96375; 99285; J0780; J1885; J2060; J7030